=== PATIENT | male | born 1970 | race Caucasian/White ===

== ENCOUNTER 2017-10-03 13:43 | Emergency (ER) | payer BC ==
[2017-10-03 14:06] VITALS: BP 137/82
--- NOTE | 2017-10-03 14:17 | UC ---
Skin Complaint HPI - HPI Summary HPI Summary: Pt c/o gradual onset of tender rash that now is erythematous and has multiple vessicles. The rash began on left anterior chest around nipple and now is across chest and posterior upper back. - History of Current Complaint Chief Complaint: UCSkin Time Seen by Provider: 10/03/17 14:08 Stated Complaint: skin complaint Hx Obtained From: Patient Onset/Duration: Gradual Onset, Lasting Days, Still Present, Worse Since - onset Skin Exposure Onset/Duration: Days Ago Timing: Constant Onset Severity: Mild Current Severity: Moderate Pain Intensity: 3 Character: Pain, Redness, Raised Aggravating Factor(s): Touch Alleviating Factor(s): Nothing Associated Signs & Symptoms: Positive: Rash - Allergy/Home Medications Allergies/Adverse Reactions: Allergies Allergy/AdvReac Type Severity Reaction Status Date / Time No Known Allergies Allergy Verified 10/03/17 13:59 Review of Systems Constitutional: Negative Skin: Rash Eyes: Negative ENT: Negative Respiratory: Negative Cardiovascular: Negative Gastrointestinal: Negative Genitourinary: Negative Motor: Negative Neurovascular: Negative Musculoskeletal: Negative Neurological: Negative Psychological: Negative Is Patient Immunocompromised?: No All Other Systems Reviewed And Are Negative: Yes PMH/Surg Hx/FS Hx/Imm Hx Previously Healthy: Yes - Surgical History Surgical History: None - Family History Known Family History: Positive: Hypertension - Social History Occupation: Employed Full-time Lives: With Family Alcohol Use: Occasionally Substance Use Type: None Smoking Status (MU): Never Smoked Tobacco Have You Smoked in the Last Year: No Physical Exam Triage Information Reviewed: Yes Appearance: Well-Appearing Vital Signs: Initial Vital Signs Temp 97.9 F 10/03/17 14:00 Pulse 71 10/03/17 14:00 Resp 16 10/03/17 14:00 BP 137/82 10/03/17 14:00 Pulse Ox 99 10/03/17 14:00 Vital Signs Reviewed: Yes Eye Exam: Normal ENT Exam: Normal Dental Exam: Normal Neck exam: Normal Respiratory Exam: Normal Cardiovascular Exam: Normal Musculoskeletal Exam: Normal Neurological Exam: Normal Psychological Exam: Normal Skin: Positive: rashes - clusters of clear vessicles. erythematous areas along dermatome Course/Dx - Differential Diagnoses - Skin Complaint Differential Diagnoses: Cellulitis, Contact Dermatitis, Varicella Zoster - Diagnoses Provider Diagnoses: shingles Discharge - Discharge Plan Condition: Stable Disposition: HOME Prescriptions: ValACYclovir (*) [Valtrex 1 GM(*)] 1 gm PO Q8H #21 tab Patient Education Materials: Amanda (ED) Forms: *Work Release Referrals: Jonathan Sevilla, DO [Primary Care Provider] - If Needed
== END 2017-10-03 14:26 | disposition home or self-care (01) ==
LOC: UCCORT 13:43
DX: B02.9 Zoster without complications (principal)
CPT/HCPCS: 99212; G0463

== ENCOUNTER 2018-10-07 16:07 | Emergency (ER) | payer BC ==
[2018-10-07 17:13] VITALS: BP 130/77
[2018-10-07] MEDS ORDERED: Lidocaine 1%* 5 ML VIAL INJ ONE (17:19)
[2018-10-07] MEDS ORDERED: Tetan/Diph/Pertus SYR(Tdap)* 0.5 ML SYR(BOOSTRIX) use SYR IM ONE (17:19)
--- NOTE | 2018-10-07 17:49 | UC ---
General HPI - HPI Summary HPI Summary: CUT L HAND WITH A UTILITY KNIFE AROUND 1PM TODAY WHILE AT WORK. USED BUTTERFLY BANDAIDES. NO LIMITED ROM OR FB SENSATION. LAST TETANUS IS UNKNOWN. - History of Current Complaint Chief Complaint: UCLaceration Stated Complaint: LEFT THUMB/ HAND LACERATION Hx Obtained From: Patient Onset/Duration: Sudden Onset Timing: Constant Pain Intensity: 1 Associated Signs & Symptoms: Negative: Edema, Fever, Weakness - Allergy/Home Medications Allergies/Adverse Reactions: Allergies Allergy/AdvReac Type Severity Reaction Status Date / Time No Known Allergies Allergy Verified 10/07/18 17:06 Home Medications: Home Medications Ibuprofen TAB* [Advil TAB*] 600 mg PO Q6H PRN 10/07/18 [History Confirmed ] PMH/Surg Hx/FS Hx/Imm Hx Cardiovascular History: Hypertension - Surgical History Surgical History: None - Family History Known Family History: Positive: Hypertension - Social History Occupation: Employed Full-time Alcohol Use: Weekly Substance Use Type: None Smoking Status (MU): Former Smoker Have You Smoked in the Last Year: No When Did the Patient Quit Smoking/Using Tobacco: 2003 - Immunization History Hx Tetanus, Diphtheria Vaccination: No Vaccination Up to Date: Yes Review of Systems All Other Systems Reviewed And Are Negative: Yes Skin: Positive: Other - CUT L HAND Is Patient Immunocompromised?: No Physical Exam Triage Information Reviewed: Yes Appearance: Well-Appearing Vital Signs: Initial Vital Signs Temp 98.1 F 10/07/18 17:07 Pulse 58 10/07/18 17:07 Resp 18 10/07/18 17:07 BP 130/77 10/07/18 17:07 Pulse Ox 98 10/07/18 17:07 Vital Signs Reviewed: Yes Eyes: Positive: Conjunctiva Clear ENT: Positive: Normal ENT inspection Respiratory: Positive: Lungs clear Cardiovascular: Positive: RRR Abdomen Description: Positive: Nontender Musculoskeletal: Positive: ROM Intact Neurological: Positive: Alert Psychological: Positive: Age Appropriate Behavior Skin Exam: Normal, Other - 2.5CM LACERATION OVER L THENAR EMINENCE. FAT SEEN. NO ACTIVE BLEEDING OR FB. HAND HAS FULL S/V/M FUNCTION UP TO POINT OF INJURY. Course/Dx - Course Course Of Treatment: PROCEDURE: TIME OUT. SITE PREP BETADINE. LOCAL WITH 1% LIDOCAINE. EXPLORED, NO FB OR MM TENDON, LIGAMENT INJURY. IRRIGATED UNDER PRESSURE WITH 500ML STERILE NACL. PREP BETADINE, DRAP AND CLOSED WITH 5-0 NYLON AND 3 STITCHES(2 SIMPLE AND 1 HORIZONTAL MATTRESS). STERILE TECHNIQUE USED. PT TOLERATED WELL. BACITRACIN APPLIED TO SITE THEN STERILE GAUZE AND COBAN TO HOLD IN PLACE. GROSS S/V INTACT AFTER AND ONLY SCANT BLEEDING WITH THE PROCEDURE. - Diagnoses Provider Diagnosis: Laceration of left hand Discharge - Sign-Out/Discharge Documenting (check all that apply): Patient Departure All imaging exams completed and their final reports reviewed: No Studies - Discharge Plan Condition: Stable Disposition: HOME Patient Education Materials: Care For Your Stitches (DC) Referrals: Francisco Vallecillo DO [Primary Care Provider] - Additional Instructions: FOLLOW UP WITH PRIMARY CARE OF RETURN HERE IN 7-10 DAYS FOR SUTURE REMOVAL. - Billing Disposition and Condition Condition: STABLE Disposition: Home - Attestation Statements Provider Attestation: Per institutional requirements, I have reviewed the chart, however, I was not consulted specifically or made aware of this patient by the midlevel provider. I did not personally evaluate, interact with , or disposition this patient.
== END 2018-10-07 18:00 | disposition home or self-care (01) ==
LOC: UCCORT 16:07
DX: S61.412A Laceration without foreign body of left hand, initial encounter (principal); I10 Essential (primary) hypertension; Z87.891 Personal history of nicotine dependence; W26.0XXA Contact with knife, initial encounter; Y92.9 Unspecified place or not applicable; Y99.0 Civilian activity done for income or pay
CPT/HCPCS: 12001; 90471; 90715; 99211; G0463